=== PATIENT | female | born 1965 | race Caucasian/White ===

== ENCOUNTER 2018-02-21 06:39 | Day surgery (SDC) | payer OTHER ==
[2018-02-21] MEDS ORDERED: CEFAZOLIN 1 GM INJ (07:00)
[2018-02-21] MEDS ORDERED: DEXAMETHASONE 4 MG/ML 1 ML INJ ×2 (07:00→09:02)
[2018-02-21] MEDS ORDERED: LIDOCAINE 2% (SDV) 5 ML INJ (07:00)
[2018-02-21] MEDS ORDERED: FENTAnyl 50 MCG/ML VIAL (08:35)
[2018-02-21] MEDS ORDERED: PROPOFOL 60 ML (09:01)
[2018-02-21] MEDS ORDERED: ONDANSETRON 4 MG INJ (09:02)
[2018-02-21] MEDS ORDERED: KETOROLAC 30 MG INJ (09:02)
[2018-02-21] MEDS ORDERED: MEPERIDINE 25 MG INJ IV (09:30)
[2018-02-21] MEDS ORDERED: ALBUTEROL 0.083% (NEB) 2.5 MG/3 ML AMP HHN (09:30)
[2018-02-21] MEDS ORDERED: OXYCODONE/ACETAMINOPHEN (5/325) TAB PO ×2 (09:30)
[2018-02-21] MEDS ORDERED: METOCLOPRAMIDE 10 MG INJ IV (09:30)
[2018-02-21] MEDS ORDERED: EPHEDrine SULFATE 50 MG/5 ML SYG IV (09:30)
[2018-02-21] MEDS ORDERED: DIPHENHYDRAMINE 50 MG INJ IV (09:30)
[2018-02-21] MEDS ORDERED: LABETALOL HCL 20MG INJ IV (09:30)
[2018-02-21] MEDS ORDERED: MIDAZOLAM 1 MG/ML 2 ML INJ IV (09:30)
[2018-02-21] MEDS ORDERED: HYDROmorphONE (0.2 MG/ML) 10ML SYG IV ×3 (09:30)
[2018-02-21] MEDS ORDERED: ONDANSETRON 4 MG INJ IV (09:30)
[2018-02-21] MEDS ORDERED: FENTAnyl 50 MCG/ML VIAL IV ×3 (09:30)
[2018-02-21] MEDS ORDERED: hydrALAzine 20 MG INJ IV (09:30)
[2018-02-21] MEDS ORDERED: KETOROLAC 30 MG INJ IV (09:30)
== END 2018-02-21 10:25 | disposition home or self-care (01) ==
LOC: SDS 06:39
DX: N93.9 Abnormal uterine and vaginal bleeding, unspecified (principal)
CPT/HCPCS: 58558; 88305